=== PATIENT | female | born 1970 | race Caucasian/White ===

== ENCOUNTER → 2021-01-11 | Day surgery (SDC) | payer OTHER ==
[~2021-01-11] VITALS: Ht 170.2 cm; Wt 125.2 kg
[~2021-01-11] MED LIST: ACETAMINOPHEN500 M1 PO; COLACE100 MG PO; FLUOXETINE HCL40 MG PO; GABAPENTIN300 MG PO; HCTZ25 MG PO; INSULIN LI100 UNIT/2 SC; LEVOTHYROXINE200 MC1 PO; LEVOTHYROXINE88 MCG PO; SIMVASTATIN20 MG PO; TRESIBA FL100 UNIT/1 SC; ULTRAM50 MG PO
== END | disposition home or self-care (01) ==
LOC: FAS 06:31
DX: K62.1 Rectal polyp (principal); D50.9 Iron deficiency anemia, unspecified; K64.4 Residual hemorrhoidal skin tags; E78.00 Pure hypercholesterolemia, unspecified; E03.9 Hypothyroidism, unspecified; E66.01 Morbid (severe) obesity due to excess calories; E11.9 Type 2 diabetes mellitus without complications; Z88.6 Allergy status to analgesic agent; Z98.51 Tubal ligation status; Z79.4 Long term (current) use of insulin; Z68.42 Body mass index [BMI] 45.0-49.9, adult
CPT/HCPCS: J2250; J2704; J7120

== ENCOUNTER → 2021-02-08 | Day surgery (SDC) | payer OTHER ==
[~2021-02-08] VITALS: Ht 170.2 cm; Wt 125.2 kg
[2021-02-08 10:25] LABS: BUN/CREAT RATIO (CALC) 18.8 RATIO; CREATININE 0.64 mg/dL (0.51-0.95); POTASSIUM 4.5 mmol/L (3.5-5.1)
== END | disposition home or self-care (01) ==
LOC: FAS 08:51
PROVIDERS: Anesthesiology
DX: K62.1 Rectal polyp (principal); K62.3 Rectal prolapse; E11.9 Type 2 diabetes mellitus without complications; E78.5 Hyperlipidemia, unspecified; E89.0 Postprocedural hypothyroidism; F32.9 Major depressive disorder, single episode, unspecified; Z88.6 Allergy status to analgesic agent; Z88.8 Allergy status to other drugs, medicaments and biological substances; Z79.4 Long term (current) use of insulin; Z79.899 Other long term (current) drug therapy
CPT/HCPCS: 36415; 80048; 93005; J1100; J1644; J2250; J2405; J2704; J3010; J7120